=== PATIENT | male | born 1940 | race Hispanic/Latino ===

== ENCOUNTER → 2024-01-13 | Outpatient (CLI) | payer OTHER | END | disposition home or self-care (01) | LOC: RAH 13:59 | PROVIDERS: ATTEND Internal Medicine | DX: I34.0 Nonrheumatic mitral (valve) insufficiency (principal); R07.9 Chest pain, unspecified | CPT/HCPCS: 93306 ==

== ENCOUNTER 2024-11-26 15:52 | Emergency (ER) | payer OTHER ==
[~2024-11-26] VITALS: Ht 185.4 cm; Wt 90.7 kg
[2024-11-26 16:02] VITALS: BP 139/70; PULSE 61; RESP 16; TEMP 98.1; O2SAT 98
--- NOTE | 2024-11-26 16:03 | ERN ---
ED Note History of Present Illness Stated Complaint: SWALLOWED PILL Chief Complaint: Swallowed Foreign Body Time Seen by MD: 15:59 Dictation: PATIENT IS AN 84-YEAR-OLD MALE STATES HE WAS TAKEN A HANDFUL OF PILLS EARLIER THIS MORNING WHEN HE STARTED COUGHING. HE THINKS HE MIGHT HAVE ASPIRATED HIS MULTIVITAMIN. CURRENTLY STATES HE HAS NO DISTRESS OTHER THAN HE HAS A SORE THROAT FROM THE COUGHING. BILATERAL BREATH SOUNDS ARE CLEAR NO STRIDOR AND VOICE IS CLEAR. Allergies: Coded Allergies: No Known Drug Allergies (Unverified Allergy, Unknown, 11/26/24) Past Medical History RN Note Reviewed/Agreed w/PFSH: Yes Review of System Dictation CONSTITUTIONAL: NEGATIVE EXCEPT FOR HPI HEAD/FACE: NEGATIVE EXCEPT FOR HPI EENT: NEGATIVE EXCEPT FOR HPI SORE THROAT RESPIRATORY: NEGATIVE EXCEPT FOR HPI GASTROINTESTINAL/ABDOMINAL: NEGATIVE EXCEPT FOR HPI GENITOURINARY: NEGATIVE EXCEPT FOR HPI MUSCULOSKELETAL: NEGATIVE EXCEPT FOR HPI INTEGUMENTARY: NEGATIVE EXCEPT FOR HPI NEUROLOGICAL/PSYCH: NEGATIVE EXCEPT FOR HPI HEMATOLOGIC/LYMPHATIC: NEGATIVE EXCEPT FOR HPI ALL SYSTEMS NEGATIVE, EXCEPT NOTED ABOVE. 13 POINT REVIEW OF SYSTEMS ASSESSED AND ALL NEGATIVE EXCEPT FOR ABOVE. Initial Vital Sign VS Vital Signs Date Time Temp Pulse Resp B/P (MAP) Pulse Ox O2 Delivery O2 Flow Rate FiO2 11/26/24 16:02 98.1 61 16 139/70 98 Room Air 0 11/26/24 16:02 21 Physical Exam Dictation VITAL SIGNS REVIEWED GENERAL APPEARANCE: ALERT, ORIENTED X 3, NO ACUTE DISTRESS, WELL DEVELOPED, NOURISHED. HEAD AND FACE: NON-TRAUMATIC. EYES: PERRL, PINK CONJUNCTIVAS, EYELID NO TRAUMA, ANTERIOR CHAMBER WITH ARCUS SENILIS. EARS: PINNAS INTACT AND NO SIGNS OF TRAUMA OR ERYTHEMA EAR CANALS CLEAR AND NO DISCHARGE TM NO ERYTHEMA NOSE: NO DISCHARGE, NO BLEEDING. OROPHARYNX: MOUTH NORMAL, TONGUE PINK, NO ERYTHEMA NO FOREIGN BODY NOTED NO STRIDOR WITH AUSCULTATION PHARYNX CLEAR,NO ERYTHEMA, TONSILS NO EXUDATES, NO ABSCESSES NOTED, MUCOUS MEMBRANE MOIST NECK: SUPPLE, NON-TENDER, NO THYROMEGALY, NO MASSES, NO JVD, NO BRUITS BREAST:DEFERRED CHEST:NO TENDERNESS, NO CREPITUS, NO PARADOXICAL MOVEMENT, NO RETRACTIONS LUNGS:CLEAR, WELL-VENTILATED, SYMMETRIC, NO RALES, NO WHEEZING, NO RHONCHI, NO STRIDOR, GOOD BREATH SOUNDS BILATERALLY HEART: REGULAR RATE, REGULAR RHYTHM, NO MURMUR, NO GALLOPS VASCULAR: NO PERIPHERAL EDEMA, ABDOMEN: SOFT, POSITIVE BOWEL SOUNDS, NONDISTENDED, NO GUARDING, NONTENDER, NO REBOUND, NO MASSES NO HEPATOMEGALY, NO SPLENOMEGALY, NO LUU'S SIGN, NO HERNIAS. RECTAL: DEFERRED GENITAL: DEFERRED NEUROLOGICAL: NORMAL SPEECH, MOTOR FUNCTION INTACT, SENSORY FUNCTION INTACT MUSCULOSKELETAL: NECK NONTENDER, FULL RANGE OF MOTION, BACK NONTENDER, FULL RANGE OF MOTION, EXTREMITIES: NONTENDER, FULL RANGE OF MOTION SKIN: COLOR PINK, DRY, NO TURGOR, NO RASH, NO LACERATIONS, NO ABRASIONS, NO CONTUSIONS. LYMPHATIC: DEFERRED Results (Laboratory/Radiology) Laboratory/Radiology CHEST 1VW HISTORY: Aspiration COMPARISON: None FINDINGS: A frontal projection of the chest was obtained. Prominent interstitial markings are seen with possible superimposed infiltrates. The heart is borderline enlarged. Degenerative changes are seen. No evidence of aortic calcification is seen. IMPRESSION: 1. Prominent interstitial markings are seen with possible superimposed infiltrates. Labs Reviewed?: Yes ED Course ED Course Orders Procedure Category Date Status Time Chest 1vw RAD 11/26/24 Resulted 16:01 Mag/Alum/Simeth 30ml PHA 11/26/24 Complete (Maalox Plus 30ml) 16:30 Current Medications Medications (Trade) Dose Ordered Sig/Zuri Route PRN Reason Start Time Stop Time Status Last Admin Dose Admin Al Hydroxide/Mg Hydroxide (MAALox PLUS 30ML) 30 ml ONCE ONCE PO 11/26/24 16:30 11/26/24 16:31 DC Vital Signs Date Time Temp Pulse Resp B/P (MAP) Pulse Ox O2 Delivery O2 Flow Rate FiO2 11/26/24 16:02 98.1 61 16 139/70 98 Room Air* 0 21 11/26/24 16:02 98.1 61 16 139/70 98 Room Air 0 SIXTEEN 50 NO RESPIRATORY DISTRESS NO STRIDOR. WE WILL DISCHARGE PATIENT HOME TO FOLLOW UP WITH HIS PRIMARY CARE DOCTOR IN THE NEXT 1-2 DAYS. Medical Decision Making MDM MEDICAL DISCHARGE MAKING BASED ON TREATMENT FOR SORE THROAT AND CHEST X-RAY FOR POSSIBLE ASPIRATION CHEST X-RAY NEGATIVE BILATERAL BREATH SOUNDS CLEAR, NO STRIDOR VOICE CLEAR PATIENT TOLD TO TAKE MAALOX 30 ML EVERY 6 HOURS NEEDED FOR ESOPHAGEAL PAIN SEE HIS PRIMARY CARE DOCTOR FOR FOLLOW UP DX & DISP Disposition: Discharge Departure Impression: Primary Impression: Choking episode Additional Impression: Foreign body sensation in throat Condition: Stable Additional Instructions: FOLLOW-UP WITH PRIMARY CARE PROVIDER IN 1 TO 2 DAYS. TAKE MEDICATIONS DIRECTED HERE IN THE EMERGENCY ROOM. OKAY TO CONTINUE HOME MEDICATIONS UNLESS OTHERWISE DISCUSSED DURING YOUR VISIT IN THE EMERGENCY ROOM TODAY. RETURN TO YOUR NEAREST EMERGENCY ROOM IF SYMPTOMS WORSEN OR IF THERE IS NO IMPROVEMENT. CALL 911 IF YOU NEED IMMEDIATE ASSISTANCE. TAKE TYLENOL OR MOTRIN [id number] NEEDED AND IF NO CONTRAINDICATIONS ARE PRESENT. INCREASE ORAL HYDRATION. A WOUND CULTURE OR URINE CULTURE WAS ORDERED HERE IN THE EMERGENCY ROOM DEPARTMENT PLEASE FOLLOW-UP WITH PRIMARY CARE PROVIDER AND ADVISE THEM TO GET REPEAT PORTS FROM OUR FACILITY. IF YOU HAD ANY [place] WRAP/SPLINTS THAT WERE APPLIED HERE, PLEASE DO NOT REMOVE THEM UNTIL YOU SEE YOUR PRIMARY CARE OR SPECIALTY. SUGGEST MAALOX 30 ML/[id number] EVERY 6 HOURS NEEDED FOR SORE THROAT DIET AND ACTIVITY TOLERATED, SEE YOUR PRIMARY CARE DOCTOR FOR FOLLOW UP Referrals: DEEPAK WHITE MD (PCP) Time of Disposition: 16:53 I have reviewed the case, and I agree with, Diagnosis and Plan CHYNA KEANE NP Nov 26, 2024 16:03
--- NOTE | 2024-11-26 16:24 | HMCIMG ---
CHEST 1VW HISTORY: Aspiration COMPARISON: None FINDINGS: A frontal projection of the chest was obtained. Prominent interstitial markings are seen with possible superimposed infiltrates. The heart is borderline enlarged. Degenerative changes are seen. No evidence of aortic calcification is seen. IMPRESSION: 1. Prominent interstitial markings are seen with possible superimposed infiltrates.
[2024-11-26] MEDS: MAG/ALUM/SIMETH 30 ML UDCUP PO ONE (16:54)
== END 2024-11-26 17:06 | disposition home or self-care (01) ==
LOC: EDH 15:52
DX: R09.A2 Foreign body sensation, throat (principal); R09.89 Other specified symptoms and signs involving the circulatory and respiratory systems
CPT/HCPCS: 71045; 99283

== ENCOUNTER 2025-04-25 05:57 | Day surgery (SDC) | payer OTHER ==
[2025-04-23 09:57] LABS: IMMATURE GRANULOCYTE ABSOLUTE 0.02 K/uL (0-1); NUCLEATED RED BLOOD CELLS 0.0 % (0.0-0.19); PLATELET COUNT (AUTO) 206 K/uL (130-400); RED BLOOD CELL COUNT(AUTO) 4.04 MIL/uL (4.50-6.20); RED CELL DISTRIBUTION WIDTH 13.6 % (11.0-15.5); WHITE BLOOD COUNT (AUTO) 5.5 K/uL (4.8-10.8)
[2025-04-23 10:04] LABS: INR 1.0 (0.85-1.15)
[2025-04-23 10:11] LABS: CREATININE 1.0 mg/dL (0.5-1.3); GLOMERULAR FILTR. RATE CALC 75.0 mL/min (>90); GLUCOSE,RANDOM 95.0 mg/dL (70-105); SODIUM SERUM 140.0 mmol/L (136-145); UREA NITROGEN, BLOOD 12.0 mg/dL (7-18)
[2025-04-23 10:19] VITALS: BP 145/66; PULSE 51; RESP 17; TEMP 97.2
--- NOTE | 2025-04-23 10:28 | EKG ---
[facility] Test Date: 2025-04-23 Test Time: 09:43:33 Pat Name: TIFFANIE BURN Department: [facility] Room: Gender: Supervisor [employer]: [id number] : 1940 Requested By: EVAN WASHINGTON Order Number: [id number] Reading MD: Romulo Mark Measurements Intervals [place] Rate: 46 P: 75 WA: 201 QRS: -6 QRSD: 107 T: 11 QT: 489 QTc: 426 Interpretive Statements Sinus bradycardia No previous ECG available for comparison Electronically Signed On 04-23-2025 21:40:33 CDT by Romulo Mark Please click the below link to view image of tracing.
[2025-04-25] VITALS (8 sets, daily range): BP systolic 107–140; BP diastolic 48–70; PULSE 47–86; RESP 14–18; TEMP 97.3
[~2025-04-25] VITALS: Ht 188 cm; Wt 94.3 kg
[~2025-04-25 05:57] MED LIST: ASPI-1443 PO; ATOR-2 PO; LORA10TA7 PO; LOSA25TA41 PO; MVI PO
[2025-04-25] MEDS: 0.9%NACL 1000ML 1,000 ML IV SCH (07:03)
[2025-04-25] MEDS ORDERED: LIDOCAINE HCL 400MG/20ML VIAL ONE (07:36)
[2025-04-25] MEDS ORDERED: MIDAZOLAM HCL 1 MG/ML 2ML VIAL ONE ×2 (07:36→08:26)
[2025-04-25] MEDS ORDERED: SODIUM BICARB 50MEQ 50ML VIAL 50 ML ONE (07:36)
[2025-04-25] MEDS ORDERED: HEParin-NS 1,000 UNIT/500 ML 500 ML IV ONE (07:37)
[2025-04-25] MEDS ORDERED: ADENOSINE 6MG VIAL IV ONE (08:05)
[2025-04-25] MEDS ORDERED: ISOPROTERENOL HCL 0.2 MG/ML AMP/VIAL/BAG ONE (08:05)
--- NOTE | 2025-04-25 10:55 | NUR ---
BOTH PT AND FRIEND GIVEN VERBAL AND WRITTEN DISCHARGE INSTRUCTIONS. IV REMOVED SITE ASYMPTOMATIC. DRESSING TO RIGHT GROIN ASYMPTOMATIC. PT TAKEN OUT VIA WHEELCHAIR FRIEND DRIVING
== END 2025-04-25 11:05 | disposition home or self-care (01) ==
LOC: DAH 05:57
PROVIDERS: ATTEND Internal Medicine Cardiovascular Disease
DX: R00.1 Bradycardia, unspecified (principal); I95.1 Orthostatic hypotension; I47.29 Other ventricular tachycardia; I49.3 Ventricular premature depolarization; I10 Essential (primary) hypertension; I25.10 Atherosclerotic heart disease of native coronary artery without angina pectoris; G47.33 Obstructive sleep apnea (adult) (pediatric); E78.5 Hyperlipidemia, unspecified; J44.9 Chronic obstructive pulmonary disease, unspecified; Z99.89 Dependence on other enabling machines and devices; Z82.49 Family history of ischemic heart disease and other diseases of the circulatory system; Z79.899 Other long term (current) drug therapy
CPT/HCPCS: 36415; 80048; 85025; 85610; 85730; 93005; 93620; 99152; 99153; 99156; 99157; A4606; C1730; C1894; J0153; J1644; J2250; J3010; J3490; A4215; A4216; A4221; A4222; A4223; A4649; A4663; C1760; G0500